=== PATIENT | female | born 1960 | race Caucasian/White ===

== ENCOUNTER 2016-12-17 17:20 | Observation (INO) | payer OTHER ==
[~2016-12-17] VITALS: Ht 157.5 cm; Wt 64.0 kg
[~2016-12-17 17:20] MED LIST: ADVAIR 250/501 DISK IH; ALBUTEROL SULF8.5 GM IH; ALEVE220 MG PO; ANAPROX DS550 M1 PO; BENADRYL25 MG PO; BUPROPION XL150 MG PO; CHLORDIAZEPOXID25 MG PO; CIPRO500 MG PO; DILAUDID2 MG PO; DULCOLAX10 MG PR; FLEXERIL10 MG PO; FLEXERIL5 MG PO; FOLIC ACID1 MG PO; HYDROCODON-ACE1 EA10 PO; HYDROMORPHONE HC2 MG PO; HYDROMORPHONE HC4 MG PO; KEPPRA500 MG PO; LEVAQUIN500 MG PO; LISINOPRIL-HCT1 EAC3 PO; LISINOPRIL10 MG PO; LISINOPRIL20 MG PO; MEDROL DOSEPAK4 MG PO; MOBIC7.5 MG PO; NAPROSYN500 MG PO; NAPROXEN500 MG PO; OMEPRAZOLE40 M1 PO; OXAYDO5 MG PO; OXYCODONE HCL5 MG PO; PAXIL20 MG PO; PERCOCET 10/1 TABLET PO; PERCOCET 5/31 TABLET PO; PREDNISONE10 MG PO; PREDNISONE50 MG PO; PROAIR HFA8.5 GM IH; PROVENTIL,2.5 MG/3 M IH; SENNA-DOCUSATE1 EAC1 PO; SKELAXIN800 MG PO; SYMBICORT60 INHALAT IH; THIAMINE HCL100 MG PO; TRAZODONE HCL50 MG PO; ULTRAM50 MG PO; VALIUM2 MG PO; VALIUM5 MG PO; VENTOLIN HFA18 GM IH; VIBRAMYCIN100 MG PO; VICODIN,LORT1 TABLET PO; WELLBUTRIN XL150 MG PO; XANAX0.5 MG PO; ZESTORETIC 20-1 EAC2 PO; ZITHROMAX250 MG PO; ZOFRAN4 MG PO
[2016-12-17] MEDS ORDERED: PROVENTIL,2.5 MG/3 M IH (23:39)
[2016-12-17] MEDS ORDERED: AMBIEN5 MG PO (23:39)
[2016-12-18 02:29] VITALS: BP 166/87
[2016-12-18 04:32] VITALS: BP 128/78
[2016-12-18 07:35] VITALS: BP 136/86
[2016-12-18 11:01] VITALS: BP 113/63
[2016-12-18 14:51] LABS: EOSINOPHIL (%) 0 % (0-5); HEMATOCRIT 28.7 % (36.0-46.0); IMMATURE GRANULOCYTE (%) 0.4 % (0.0-0.7); LYMPHOCYTE COUNT 0.4 K/uL (1.0-2.8); MCH 31.7 PG (29.0-34.0); MCHC 33.8 G/DL (30.0-36.0); MCV 93.8 FL (83-99); MONOCYTE (%) 1.2 % (3-12); MONOCYTE COUNT 0.1 K/uL (0-0.8); NEUTROPHIL (%) 92.5 % (45-76); PLATELET COUNT 178 K/uL (156-360); RBC DIS.WIDTH-CV 12.2 % (11.8-14.6); RBC DIS.WIDTH-SD 42.2 % (39-53); RED BLOOD COUNT 3.06 M/uL (3.80-5.20); WHITE BLOOD COUNT 7.6 K/uL (4.1-10.2)
[2016-12-18 15:08] LABS: ALKALINE PHOSPHATASE 128 IU/L (3-129); ANION GAP 12 MEQ/L (2-14); CHLORIDE 102 MEQ/L (99-109); GFR ESTIMATE (CALCULATED) > 59 mL/min/; GLUCOSE 230 mg/dL (70-99); POTASSIUM 3.8 MEQ/L (3.7-5.4); SAMPLE HEMOLYSIS CHECK 0; SAMPLE ICTERIC CHECK 0; SAMPLE LIPEMIA CHECK 0; SODIUM 136 MEQ/L (136-147); TOTAL BILIRUBIN 0.4 MG/DL (0.0-1.0); UREA NITROGEN (BUN) 26 mg/dL (9-23)
[2016-12-18 15:58] VITALS: BP 116/67
[2016-12-18] MEDS ORDERED: OXAYDO5 MG PO (17:55)
[2016-12-18] MEDS ORDERED: CYCLOBENZAPRINE10 MG PO (17:55)
[2016-12-19 00:09] VITALS: BP 115/62
[2016-12-19 04:00] VITALS: BP 109/58
[2016-12-19 07:30] VITALS: BP 98/58
[2016-12-19 09:36] VITALS: BP 102/61
[2016-12-19 10:32] VITALS: BP 102/59
== END 2016-12-19 13:00 | disposition home or self-care (01) ==
LOC: EME 17:20 → EDOF 23:15 → 5WEST 23:15
PROVIDERS: Family Medicine
DX: M62.830 Muscle spasm of back (principal); M25.511 Pain in right shoulder; G89.29 Other chronic pain; M50.20 Other cervical disc displacement, unspecified cervical region; M50.30 Other cervical disc degeneration, unspecified cervical region; G43.909 Migraine, unspecified, not intractable, without status migrainosus; J44.9 Chronic obstructive pulmonary disease, unspecified; J45.909 Unspecified asthma, uncomplicated; F17.200 Nicotine dependence, unspecified, uncomplicated; F41.9 Anxiety disorder, unspecified; F32.9 Major depressive disorder, single episode, unspecified
CPT/HCPCS: 72125; 80053; 85025; 94640; 94640 76; 99202; 99281; 99285; G0378; J0360; J1030; J1170; J1885; J2930; J3010; J3360; J7030; J7050; S0020

== ENCOUNTER 2017-03-25 05:50 | Emergency (ER) | payer OTHER ==
[~2017-03-25] VITALS: Ht 157.5 cm; Wt 59.0 kg
[~2017-03-25 05:50] MED LIST changes: +AMBIEN5 MG PO; +CYCLOBENZAPRINE10 MG PO
[2017-03-25 09:09] VITALS: BP 109/74
== END 2017-03-25 09:11 | disposition left against medical advice (07) ==
LOC: EME → EDBD 05:50 → EME 09:11
DX: S16.1XXA Strain of muscle, fascia and tendon at neck level, initial encounter (principal); R07.81 Pleurodynia; X50.0XXA Overexertion from strenuous movement or load, initial encounter; G89.29 Other chronic pain; J44.9 Chronic obstructive pulmonary disease, unspecified; J45.909 Unspecified asthma, uncomplicated; I10 Essential (primary) hypertension; F17.200 Nicotine dependence, unspecified, uncomplicated
CPT/HCPCS: 71020; 72050; 99281; 99284; J7030

== ENCOUNTER 2017-08-13 11:47 | Observation (INO) | payer OTHER ==
[~2017-08-13] VITALS: Ht 157.5 cm; Wt 70.4 kg
[2017-08-13 12:49] LABS: BASOPHIL COUNT 0.1 K/uL (0-0.1); EOSINOPHIL (%) 11.5 % (0-5); EOSINOPHIL COUNT 1.2 K/uL (0-0.3); HEMATOCRIT 33.4 % (36.0-46.0); IMMATURE GRANULOCYTE (%) 0.4 % (0.0-0.7); INSTRUMENT ABS NEUTROPHIL CT 6.4 K/uL; LYMPHOCYTE COUNT 1.8 K/uL (1.0-2.8); MCH 30.4 PG (29.0-34.0); MCHC 33.2 G/DL (30.0-36.0); MCV 91.5 FL (83-99); MEAN PLAT.VOLUME 10.1 uM^3 (9.5-12.4); MONOCYTE (%) 11.6 % (3-12); MONOCYTE COUNT 1.2 K/uL (0-0.8); NEUTROPHIL (%) 59.5 % (45-76); NEUTROPHIL COUNT 6.4 K/uL (1.8-6.4); PLATELET COUNT 183 K/uL (156-360); RBC DIS.WIDTH-CV 13.4 % (11.8-14.6); RED BLOOD COUNT 3.65 M/uL (3.80-5.20); WHITE BLOOD COUNT 10.7 K/uL (4.1-10.2)
[2017-08-13 13:09] LABS: TROP-I INTERPRETATION NEGATIVE; TROPONIN-I < 0.01 ng/mL (0.0-0.30)
[2017-08-13 13:30] LABS: ALKALINE PHOSPHATASE 129 IU/L (3-129); ANION GAP 9 MEQ/L (2-14); CHLORIDE 100 MEQ/L (99-109); GFR ESTIMATE (CALCULATED) > 59 mL/min/; GLUCOSE 99 mg/dL (70-99); POTASSIUM 4.2 MEQ/L (3.7-5.4); SAMPLE HEMOLYSIS CHECK 0; SAMPLE ICTERIC CHECK 0; SAMPLE LIPEMIA CHECK 0; SODIUM 138 MEQ/L (136-147); TOTAL BILIRUBIN 0.9 MG/DL (0.0-1.0); UREA NITROGEN (BUN) 26 mg/dL (9-23)
[2017-08-13] MEDS ORDERED: OXYCODONE HCL10 MG PO (15:14)
[2017-08-13] MEDS ORDERED: CYCLOBENZAPRINE10 MG PO (15:14)
[2017-08-13] MEDS ORDERED: CATAPRES0.1 MG PO (15:15)
[2017-08-13] MEDS ORDERED: ALEVE PM CAPLE1 EACH PO (15:16)
[2017-08-13] MEDS ORDERED: ATORVASTATIN CA10 MG PO (15:17)
[2017-08-13 18:17] VITALS: BP 138/79
[2017-08-14] VITALS: BP 120/67
[2017-08-14 03:28] VITALS: BP 131/67
[2017-08-14] MEDS ORDERED: NICOTINE PATCH1 EAC1 TD (07:59)
[2017-08-14] MEDS ORDERED: PREDNISONE10 MG PO (08:00)
[2017-08-14] MEDS ORDERED: LEVAQUIN750 MG PO (08:00)
[2017-08-14] MEDS ORDERED: SPIRIVA RESPIMAT4 GM IH (08:00)
[2017-08-14 08:04] VITALS: BP 126/70
[2017-08-14 08:46] LABS: INTERNAL CONTROL VALID? YES
[2017-08-14 08:47] LABS: INTERNAL CONTROL VALID? YES
[2017-08-14 10:52] VITALS: BP 120/70
== END 2017-08-14 11:48 | disposition home or self-care (01) ==
LOC: EME 11:47 → 5WEST 14:52 → EDOF 14:52 → ENRESERV 14:57 → 5WEST 18:05
PROVIDERS: Emergency Medicine; Hospitalist
DX: J44.1 Chronic obstructive pulmonary disease with (acute) exacerbation (principal); F17.200 Nicotine dependence, unspecified, uncomplicated; I10 Essential (primary) hypertension; E78.5 Hyperlipidemia, unspecified; G89.29 Other chronic pain; M54.9 Dorsalgia, unspecified; K21.9 Gastro-esophageal reflux disease without esophagitis; F41.0 Panic disorder [episodic paroxysmal anxiety]; F11.20 Opioid dependence, uncomplicated; Z86.73 Personal history of transient ischemic attack (TIA), and cerebral infarction without residual deficits; Z98.890 Other specified postprocedural states; Z87.442 Personal history of urinary calculi; Z90.49 Acquired absence of other specified parts of digestive tract; Z80.1 Family history of malignant neoplasm of trachea, bronchus and lung; Z82.49 Family history of ischemic heart disease and other diseases of the circulatory system; Z88.0 Allergy status to penicillin; Z88.6 Allergy status to analgesic agent; Z88.5 Allergy status to narcotic agent; Z91.041 Radiographic dye allergy status
CPT/HCPCS: 71020; 80053; 83605; 84484; 85025; 85379; 87040; 87449; 87502; 94640; 94640 76; 99202; G0378; J0456; J0696; J1650; J2270; J2405; J2920; J2930; J3010; J7040

== ENCOUNTER 2018-01-11 11:02 | Emergency (ER) | payer OTHER ==
[~2018-01-11] VITALS: Ht 157.5 cm; Wt 68.4 kg
[~2018-01-11 11:02] MED LIST changes: +ALEVE PM CAPLE1 EACH PO; +ATORVASTATIN CA10 MG PO; +CATAPRES0.1 MG PO; +LEVAQUIN750 MG PO; +NICOTINE PATCH1 EAC1 TD; +OXYCODONE HCL10 MG PO; +SPIRIVA RESPIMAT4 GM IH
[2018-01-11 12:04] LABS: BASOPHIL (%) 0.8 % (0-1); BASOPHIL COUNT 0.1 K/uL (0-0.1); EOSINOPHIL (%) 13.3 % (0-5); EOSINOPHIL COUNT 1.4 K/uL (0-0.3); HEMATOCRIT 39.2 % (36.0-46.0); IMMATURE GRANULOCYTE (%) 0.3 % (0.0-0.7); LYMPHOCYTE (%) 14.9 % (15-42); LYMPHOCYTE COUNT 1.5 K/uL (1.0-2.8); MCH 31.5 PG (29.0-34.0); MCHC 33.2 G/DL (30.0-36.0); MCV 94.9 FL (83-99); MONOCYTE (%) 11.4 % (3-12); MONOCYTE COUNT 1.2 K/uL (0-0.8); NEUTROPHIL (%) 59.3 % (45-76); RBC DIS.WIDTH-CV 13.3 % (11.8-14.6); RBC DIS.WIDTH-SD 46.4 % (39-53); RED BLOOD COUNT 4.13 M/uL (3.80-5.20); WHITE BLOOD COUNT 10.1 K/uL (4.1-10.2)
[2018-01-11 12:37] LABS: ALKALINE PHOSPHATASE 74 IU/L (3-129); ALT (GPT) 23 IU/L (3-49); AST (GOT) 22 IU/L (2-34); CHLORIDE 99 MEQ/L (99-109); CREATININE 0.9 MG/DL (0.6-1.3); GFR ESTIMATE (CALCULATED) > 59 mL/min/; GLUCOSE 100 mg/dL (70-99); SODIUM 134 MEQ/L (136-147); TOTAL BILIRUBIN 0.5 MG/DL (0.0-1.0); TOTAL PROTEIN 8.2 G/DL (6.4-8.3); UREA NITROGEN (BUN) 32 mg/dL (9-23)
[2018-01-11 12:39] LABS: TROP-I INTERPRETATION NEGATIVE; TROPONIN-I < 0.01 ng/mL (0.0-0.30)
[2018-01-11 12:52] LABS: PLAT.SUFFICIENCY ADEQUATE; PLATELET COUNT 193 K/uL (156-360)
[2018-01-11 13:47] LABS: APPEARANCE CLOUDY ((CLEAR)); BILIRUBIN NEGATIVE; BLOOD SMALL; COLOR YELLOW ((YELLOW)); GLUCOSE (STRIP) NEGATIVE; KETONES NEGATIVE; LEUKOCYTES LARGE; NITRITE NEGATIVE; PROTEIN (STRIP) NEGATIVE; UROBILINOGEN 0.2 MG/DL (0.2-1.0)
[2018-01-11 14:02] LABS: BACTERIA 2+ /HPF; EPITHELIAL CELLS 4+ /HPF; MUCUS NONE SEEN /LPF; RED BLOOD CELLS TNTC /HPF (0-5); UCUL ADDED? YES; WHITE BLOOD CELLS TNTC /HPF (0-5)
[2018-01-11] MEDS ORDERED: BACTRIM,SEPT1 TABLET PO (14:23)
[2018-01-11 14:42] VITALS: BP 126/62
== END 2018-01-11 14:52 | disposition home or self-care (01) ==
LOC: EME 11:02
PROVIDERS: Emergency Medicine
DX: N12 Tubulo-interstitial nephritis, not specified as acute or chronic (principal); N20.0 Calculus of kidney; J44.9 Chronic obstructive pulmonary disease, unspecified; M79.7 Fibromyalgia; I10 Essential (primary) hypertension; K21.9 Gastro-esophageal reflux disease without esophagitis; R56.9 Unspecified convulsions; F41.9 Anxiety disorder, unspecified; F17.200 Nicotine dependence, unspecified, uncomplicated; Z87.442 Personal history of urinary calculi; Z86.73 Personal history of transient ischemic attack (TIA), and cerebral infarction without residual deficits; Z90.49 Acquired absence of other specified parts of digestive tract; Z88.0 Allergy status to penicillin; Z88.6 Allergy status to analgesic agent; Z88.5 Allergy status to narcotic agent; Z91.041 Radiographic dye allergy status
CPT/HCPCS: 71046; 74176; 80053; 81003; 83605; 84484; 85025; 87086; 93005; 99281; 99285; J0696; J1100; J3010; J7030

== ENCOUNTER 2018-04-13 14:10 | Emergency (ER) | payer OTHER ==
[~2018-04-13] VITALS: Ht 157.5 cm; Wt 64.7 kg
[~2018-04-13 14:10] MED LIST changes: +BACTRIM,SEPT1 TABLET PO
[2018-04-13 15:17] LABS: HEMATOCRIT 37.4 % (36.0-46.0); HEMOGLOBIN 12.6 G/DL (11.9-15.5); MCH 32.1 PG (29.0-34.0); MCHC 33.7 G/DL (30.0-36.0); MCV 95.4 FL (83-99); PLATELET COUNT 250 K/uL (156-360); RBC DIS.WIDTH-CV 13.2 % (11.8-14.6); RBC DIS.WIDTH-SD 46.5 % (39-53); RED BLOOD COUNT 3.92 M/uL (3.80-5.20); WHITE BLOOD COUNT 6.5 K/uL (4.1-10.2)
[2018-04-13 15:28] LABS: CHLORIDE 102 mEq/L (99-109); POTASSIUM 4.7 mEq/L (3.7-5.4); SODIUM 138 mEq/L (136-147)
[2018-04-13 15:29] LABS: GLUCOSE 130 mg/dL (70-99)
[2018-04-13 15:33] LABS: CREATININE 0.9 mg/dL (0.6-1.3); GFR ESTIMATE (CALCULATED) > 59 mL/min/
[2018-04-13 15:34] LABS: UREA NITROGEN (BUN) 16 mg/dL (9-23)
[2018-04-13] MEDS ORDERED: CLEOCIN300 MG PO (16:00)
[2018-04-13 16:32] VITALS: BP 124/79
== END 2018-04-13 16:33 | disposition home or self-care (01) ==
LOC: EME 14:10
PROVIDERS: Physician Assistant
PROC: 0H9FXZZ Drainage of Right Hand Skin, External Approach (ICD-10-PCS; principal; 2018-04-13)
DX: L03.011 Cellulitis of right finger (principal); L02.511 Cutaneous abscess of right hand; Z88.5 Allergy status to narcotic agent; Z88.0 Allergy status to penicillin; Z88.6 Allergy status to analgesic agent; Z91.041 Radiographic dye allergy status
CPT/HCPCS: 80048; 85027; 99281; 99283; S0020